=== PATIENT | male | born 1950 | race Caucasian/White ===

== ENCOUNTER 2017-09-21 21:15 | Emergency (ER) | payer MEDICARE ==
[2017-09-21] VITALS (7 sets, daily range): BP systolic 159–245; BP diastolic 80–118; PULSE 60–70; RESP 18–20; TEMP 97.5; O2SAT 94–98
[2017-09-21] MEDS ORDERED: SODIUM CHLOR 0.9% 1000 ML INJ 1,000 ML IV ONE (21:43)
[2017-09-21] MEDS ORDERED: METOCLOPRAMIDE HCL 10 MG/2 ML VIAL IVP ONE (21:45)
[2017-09-21] MEDS ORDERED: SODIUM CHLORIDE 0.9% FLUSH 10 ML FLUSH IVF PRN (21:45)
--- NOTE | 2017-09-21 21:45 | PD ---
HPI Chief Complaint: Headache Time Seen by Provider: 21:29 Travel History International Travel<30 days: No Contact w/Intl Traveler<30days: No Traveled to known affect area: No History of Present Illness HPI Patient is a 67-year-old male presents emergency department with his for evaluation of headache. Patient states been having intermittent headaches for the past 2 weeks, went to his primary care physician diagnosed with sinusitis, he is taking antibiotics and intermittent Sudafed as needed for symptoms. According to him approximately an hour to 2 hours prior to arrival he was in dinner and had onset of a headache then, he denies thunderclap presentation with headache in the occipital region at the base of skull, nonradiating, not associated with any focalized weakness visual difficulties. He also states he went to the eye doctor yesterday as part of his workup did not have a dilated exam but was told his eyes were healthy. He states the pain is moderate bordering on severe, denies any neck stiffness, context as above, associated signs symptoms as above, progression as above. No chest pain or shortness of breath and decreased urinary output. No swelling in legs no orthopnea. PFSH Past Medical History Narrative Medical Hypertension Past Surgical History Narrative Surgical Arthroscopic knee right. Family History Narrative Family History Noncontributory Social History Alcohol Use: Yes Tobacco Use: No Substance Use: No Allergies-Medications (Allergen,Severity, Reaction): Coded Allergies: No Known Allergies (Unverified , 09/21/17) Reported Meds & Prescriptions Reported Meds & Active Scripts Active Reported Azithromycin 250 Mg Tab 250 Mg PO DIRECTED Take 2 tabs (500 mg) on day 1 then 1 tab daily x 4 days. Lipitor (Atorvastatin Calcium) 40 Mg Tab 40 Mg PO HS Review of Systems Except as stated in HPI: all other systems reviewed are Neg Physical Exam Narrative GENERAL: Well-developed well-nourished, no obvious distress. SKIN: Focused skin assessment warm/dry. HEAD: Atraumatic. Normocephalic. EYES: Pupils equal and round. No scleral icterus. No injection or drainage. ENT: No nasal bleeding or discharge. Mucous membranes pink and moist. NECK: Trachea midline. No JVD. Kernig's and Brudzinski signs negative. No nuchal rigidity. CARDIOVASCULAR: Regular rate and rhythm. No murmur appreciated. RESPIRATORY: No accessory muscle use. Clear to auscultation. Breath sounds equal bilaterally. GASTROINTESTINAL: Abdomen soft, non-tender, nondistended. Hepatic and splenic margins not palpable. MUSCULOSKELETAL: No obvious deformities. No clubbing. No cyanosis. No edema. NEUROLOGICAL: Awake and alert and oriented, cranial nerves II through XII are grossly intact and nonfocal, 5 out of 5 strength in all 4 extremities, cerebellar testing negative.. PSYCHIATRIC: Appropriate mood and affect; insight and judgment normal. Data Data Last Documented VS Vital Signs Date Time Temp Pulse Resp B/P (MAP) Pulse Ox O2 Delivery O2 Flow Rate FiO2 09/22/17 00:00 60 20 195/99 (131) 98 09/21/17 23:28 Room Air 09/21/17 21:22 97.5 Orders Orders Complete Blood Count With Diff (09/21/17 21:43) Comprehensive Metabolic Panel (09/21/17 21:43) Prothrombin Time / Inr (Pt) (09/21/17 21:43) Act Partial Throm Time (Ptt) (09/21/17 21:43) Ct Brain W/O Iv Contrast(Rout) (09/21/17 21:43) Ecg Monitoring (09/21/17 21:43) Iv Access Insert/Monitor (09/21/17 21:43) Oximetry (09/21/17 21:43) Sodium Chloride 0.9% Flush (Ns Flush) (09/21/17 21:45) Metoclopramide Inj (Reglan Inj) (09/21/17 21:45) Sodium Chlor 0.9% 1000 Ml Inj (Ns 1000 M (09/21/17 21:43) Electrocardiogram (09/21/17 21:37) Ed Discharge Order (09/21/17 23:10) Labs Laboratory Tests Test 09/21/17 21:50 White Blood Count 9.0 TH/MM3 Red Blood Count 5.25 MIL/MM3 Hemoglobin 15.3 GM/DL Hematocrit 47.0 % Mean Corpuscular Volume 89.5 FL Mean Corpuscular Hemoglobin 29.1 PG Mean Corpuscular Hemoglobin Concent 32.6 % Red Cell Distribution Width 12.6 % Platelet Count 240 TH/MM3 Mean Platelet Volume 8.9 FL Neutrophils (%) (Auto) 57.8 % Lymphocytes (%) (Auto) 30.0 % Monocytes (%) (Auto) 7.6 % Eosinophils (%) (Auto) 2.3 % Basophils (%) (Auto) 2.3 % Neutrophils # (Auto) 5.2 TH/MM3 Lymphocytes # (Auto) 2.7 TH/MM3 Monocytes # (Auto) 0.7 TH/MM3 Eosinophils # (Auto) 0.2 TH/MM3 Basophils # (Auto) 0.2 TH/MM3 CBC Comment DIFF FINAL Differential Comment Prothrombin Time 10.3 SEC Prothromb Time International Ratio 1.0 RATIO Activated Partial Thromboplast Time 23.8 SEC Blood Urea Nitrogen 17 MG/DL Creatinine 1.10 MG/DL Random Glucose 147 MG/DL Total Protein 7.2 GM/DL Albumin 3.6 GM/DL Calcium Level 8.7 MG/DL Alkaline Phosphatase 77 U/L Aspartate Amino Transf (AST/SGOT) 30 U/L Alanine Aminotransferase (ALT/SGPT) 37 U/L Total Bilirubin 0.6 MG/DL Sodium Level 138 MEQ/L Potassium Level 4.3 MEQ/L Chloride Level 102 MEQ/L Carbon Dioxide Level 28.3 MEQ/L Anion Gap 8 MEQ/L Estimat Glomerular Filtration Rate 67 ML/MIN MDM Medical Decision Making Medical Screen Exam Complete: Yes Emergency Medical Condition: Yes Differential Diagnosis Hypertensive urgency, hypertensive emergency, intracranial hemorrhage, subarachnoid hemorrhage, occult subarachnoid hemorrhage, Sudafed reaction, elevated blood pressure, meningitis unlikely. Narrative Course Patient roomed in emergency department, he appears well and only in minimal discomfort. Blood pressure noted to be 245/118 on arrival, CT head was negative for acute process, labs are reassuring. EKG negative. The patient was given Benadryl and Reglan and had near complete resolution of his headache. His blood pressure was retaken was 159/82 this equates to a 35% drop of MAP. Patient reassessed and remains neurologically intact, reassessed and denies any thunderclap presentation or nuchal pain. At this time I had a lengthy discussion with the patient and his regarding his negative workup thus far. I discussed that a CAT scan within 6 hours of onset of symptoms is about 90% reliable for exclusion of subarachnoid hemorrhage. I discussed gold standard is still to do a lumbar puncture to exclude occult subarachnoid hemorrhage. After discussions of the risks benefits competitions and alternatives of lumbar puncture and the risk of missing an occult subarachnoid hemorrhage the patient declined. I discussed with the patient that if he should change her mind he could return to the emergency department for repeat evaluation, discussed abstinence for Sudafed as this is likely raising his blood pressure. I discussed that he needs to follow up his blood pressure with his primary care physician for monitoring and treatment of blood pressure over the long-term. He was then comfortable with going home. Shortly after I left the room blood pressure was retaken is now elevated to 185/ 93. This still represents a 24% drop of his mean arterial pressure since arrival to the emergency department. He is not having any evidence of end organ failure, thus acutely lowering his blood pressure further in the emergency department is inherently dangerous and may compromise of blood flow to organs causing kidney damage, heart attack or stroke. That reason I have recommended against aggressive management of his blood pressure in the emergency department. Furthermore he is currently having some mild headache and does have Sudafed in his system, lowering his blood pressure now may lower him to aggressively and causing him to black out. Patient family verbalized understanding and agreement, still the patient's family including his and her sister requested that his blood pressure be taken one more time. After extensive counseling with this patient he would like to go home. Diagnosis Primary Impression: Headache Additional Impression: Elevated blood pressure reading Disposition: 01 DISCHARGE HOME Condition: Stable Cem Coates MD Sep 21, 2017 21:45
[2017-09-21 21:57] LABS: AUTOMATED NEUTROPHIL # 5.2 TH/MM3 (1.8-7.7); BASOPHIL # 0.2 TH/MM3 (0-0.2); BASOPHIL % 2.3 % (0.0-2.0); EOSINOPHIL # 0.2 TH/MM3 (0-0.4); EOSINOPHIL % 2.3 % (0.0-4.0); HEMOGLOBIN 15.3 GM/DL (13.0-17.0); LYMPHOCYTE # 2.7 TH/MM3 (1.0-4.8); MEAN CELL VOLUME 89.5 FL (80.0-100.0); MEAN CORPUSCULAR HEMOGLOBIN 29.1 PG (27.0-34.0); MEAN CORPUSCULAR HGB CONC 32.6 % (32.0-36.0); MEAN PLATELET VOLUME 8.9 FL (7.0-11.0); MONO % 7.6 % (0.0-8.0); MONOCYTE # 0.7 TH/MM3 (0-0.9); NEUT % 57.8 % (16.0-70.0); PLATELET COUNT 240 TH/MM3 (150-450); RED BLOOD COUNT 5.25 MIL/MM3 (4.50-5.90); RED CELL DISTRIBUTION WIDTH 12.6 % (11.6-17.2)
[2017-09-21 22:05] LABS: CHLORIDE 102 MEQ/L (98-107); SODIUM (NA) 138 MEQ/L (136-145)
[2017-09-21 22:08] LABS: ALBUMIN 3.6 GM/DL (3.4-5.0); BICARBONATE 28.3 MEQ/L (21.0-32.0); BLOOD UREA NITROGEN 17 MG/DL (7-18); CALCIUM 8.7 MG/DL (8.5-10.1); GLUCOSE,RANDOM 147 MG/DL (74-106)
[2017-09-21 22:10] LABS: PROTHROMBIN TIME - PATIENT 10.3 SEC (9.8-11.6)
[2017-09-21 22:11] LABS: ALT (GPT) 37 U/L (12-78); AST (GOT) 30 U/L (15-37); GLOMERULAR FILTRATION RATE 67 ML/MIN (>89)
[2017-09-21 22:13] LABS: TOTAL BILIRUBIN ADULT 0.6 MG/DL (0.2-1.0); TOTAL PROTEIN 7.2 GM/DL (6.4-8.2)
[2017-09-21 22:14] LABS: ALKALINE PHOSPHATASE 77 U/L (45-117)
[2017-09-21] MEDS ORDERED: AZIT250T3 PO (22:32)
[2017-09-21] MEDS ORDERED: LIPI40TA PO (22:32)
--- NOTE | 2017-09-21 22:38 | RADRPT ---
EXAM DATE/TIME: 09/21/2017 22:12 [facility] COMPARISON: No previous studies available for comparison. INDICATIONS : Headache, nausea and vomiting for 1 week RADIATION DOSE: 59.09 CTDIvol (mGy) MEDICAL HISTORY : Hypertension. SURGICAL HISTORY : None. ENCOUNTER: Initial ACUITY: 1 week PAIN SCALE: 9/10 LOCATION: cranial TECHNIQUE: Multiple contiguous axial images were obtained of the head. Using automated exposure control and adj ustment of the mA and/or kV according to patient size, radiation dose was kept as low as reasonably a chievable to obtain optimal diagnostic quality images. DICOM format image data is available electro nically for review and comparison. FINDINGS: CEREBRUM: The ventricles are normal for age. No evidence of midline shift, mass lesion, hemorrhage or acute in farction. No extra-axial fluid collections are seen. POSTERIOR FOSSA: The cerebellum and brainstem are intact. The 4th ventricle is midline. The cerebellopontine angle i s unremarkable. EXTRACRANIAL: The visualized portion of the orbits is intact. SKULL: The calvaria is intact. No evidence of skull fracture. CONCLUSION: Normal examination. Dirk gN MD on September 21, 2017 at 22:36 Board Certified Radiologist. This report was verified electronically.
[2017-09-22] VITALS: BP 195/99
[2017-09-22] MEDS ORDERED: PSEU30TA82 PO (01:21)
--- NOTE | 2017-09-22 22:29 | EKG ---
Date Performed: 09/21/2017 Time Performed: 21:37:21 PTAGE: 67 years EKG: Sinus rhythm NORMAL ECG WARNING: DATA QUALITY MAY AFFECT INTERPRETATION PREVIOUS TRACING : 11/02/1999 14.15 Compared to prior tracing no significant change DOCTOR: Ortega Ibarra Interpretating Date/Time 09/22/2017 22:28:38
== END 2017-09-22 00:32 | disposition home or self-care (01) ==
LOC: PHED 21:15
DX: R51 Headache (principal); I10 Essential (primary) hypertension; Z79.899 Other long term (current) drug therapy
CPT/HCPCS: 70450; 80053; 85025; 85610; 85730; 93005; 96361; 96374; 99285; J2765; J7030